=== PATIENT | female | born 1960 | race Caucasian/White ===

== ENCOUNTER 2021-12-04 08:01 | Day surgery (SDC) | payer OTHER ==
[~2021-12-04 08:01] MED LIST: Lactated Ringers 1,000 ML IV SCH; Lidocaine 1%/Sod Bicarbonate in NS 8.4% 1 ML Syringe IDERM PRN; Sodium Chloride 0.9% 10 ML Syringe FLUSH PRN; Sodium Chloride 0.9% 10 ML Syringe FLUSH SCH
[2021-12-04] MEDS ORDERED: Midazolam 1 MG/ML 2 ML SDV ONE (08:19)
[2021-12-04] MEDS ORDERED: Propofol 200 MG/20 ML SDV ONE (08:19)
[2021-12-04] MEDS ORDERED: Lidocaine 1% 4 ML ONE (08:21)
== END 2021-12-04 10:05 | disposition home or self-care (01) ==
LOC: JD.SDS 08:01
PROVIDERS: ATTEND Surgery
DX: Z12.11 Encounter for screening for malignant neoplasm of colon (principal); K64.4 Residual hemorrhoidal skin tags; K64.8 Other hemorrhoids; K44.9 Diaphragmatic hernia without obstruction or gangrene; K22.89 Other specified disease of esophagus; K20.90 Esophagitis, unspecified without bleeding; K22.70 Barrett's esophagus without dysplasia; F41.8 Other specified anxiety disorders; E03.9 Hypothyroidism, unspecified; G47.00 Insomnia, unspecified; Z98.890 Other specified postprocedural states; H54.7 Unspecified visual loss; Z79.890 Hormone replacement therapy; Z79.899 Other long term (current) drug therapy
CPT/HCPCS: 43239; 45378; J2250; J2704; J7120; 00813

== ENCOUNTER 2022-06-20 16:50 | Emergency (ER) | payer OTHER | END 2022-06-20 17:59 | disposition home or self-care (01) | LOC: JD.ED 16:50 | DX: S63.656A Sprain of metacarpophalangeal joint of right little finger, initial encounter (principal); N18.9 Chronic kidney disease, unspecified; E03.9 Hypothyroidism, unspecified; D64.9 Anemia, unspecified; Z79.899 Other long term (current) drug therapy; X50.9XXA Other and unspecified overexertion or strenuous movements or postures, initial encounter | CPT/HCPCS: 73130-26-RT; 73130-RT; 99283 ==